=== PATIENT | male | born 1970 | race Caucasian/White ===

== ENCOUNTER 2021-08-12 13:31 | Emergency (ER) | payer OTHER, SELFPAY ==
--- NOTE | ~2021-08-12 | CT_ITS ---
EXAMINATION: CT ABDOMEN AND PELVIS WITHOUT CONTRAST CLINICAL INFORMATION: Left flank pain. COMPARISON: Renal ultrasound of 07/25/2019. Abdominal MRI of 10/08/2017, CT abdomen and pelvis of 08/31/2017. TECHNIQUE: Multidetector volumetric imaging was performed from the superior aspect of the liver through the pubic symphysis. Sagittal and coronal reformatted images were obtained on the technologist's workstation. This CT examination was performed using dose optimization techniques as appropriate, variously including the following: *Automated exposure control. *Adjustment of mA and/or kV according to patient size (this includes techniques or standardized protocols for targeted exams where dose is matched to indication/reason for exam; i.e. extremities or head). *Use of iterative reconstruction technique. DLP: 776 mGy-cm FINDINGS: LUNG BASES: The visualized lung bases are unremarkable. LIVER, GALLBLADDER, AND BILIARY TREE: The unenhanced liver is normal in size, shape, and attenuation. No focal hepatic lesion or biliary ductal dilatation is present. The gallbladder is unremarkable with no evidence of radiopaque gallstones, gallbladder wall thickening, or obvious pericholecystic inflammatory changes. PANCREAS: Unremarkable. SPLEEN: Unremarkable. ADRENAL GLANDS: Unremarkable. KIDNEYS AND URETERS: The kidneys are normal in size, shape, and attenuation. No hydronephrosis, hydroureter, or calculi seen. No perinephric stranding. A 1.4 cm round right mid to lower renal lesion noted posteromedially on the previous MRI and CT scan of 2018 is not clearly appreciated on this noncontrast CT scan. BLADDER: Unremarkable. GASTROINTESTINAL TRACT: The small and large bowel are unremarkable. The appendix is unremarkable. The stomach is decompressed and, therefore, not optimally evaluated. However, no gross abnormality is noted. Small hiatal hernia. ABDOMINAL WALL: There is a fat-containing left inguinal hernia measuring approximately 2.4 cm. LYMPH NODES: No pathologically enlarged lymph nodes are noted. VASCULAR: The aortoiliac vessels are normal in caliber. Mild calcific atherosclerosis of the aortoiliac vessels. PELVIC VISCERA: Unremarkable. OSSEOUS STRUCTURES: No acute or suspicious osseous lesions. Mild multilevel degenerative changes in the spine are redemonstrated. CT/CT abdomen pelvis wo con IMPRESSION: 1. There is no evidence of radiopaque urinary tract calculi or obstructive uropathy. 2. No acute abnormalities identified to explain patient's symptoms. 3. Fat-containing left inguinal hernia measuring 2.3 cm, a stable finding. Fleischner guidelines were followed.
[2021-08-12 14:15] VITALS: BP 149/91; PULSE 64; RESP 18; TEMP 35.9; O2SAT 97; BMI 31.5
[2021-08-12 18:31] VITALS: BP 165/95; PULSE 70; RESP 18; TEMP 36.7; O2SAT 96
--- NOTE | 2021-08-12 18:39 | ED.BACK ---
HPI - Back Pain/Injury General Chief Complaint: Back Pain/Injury <Yumi Hernandez MD - Last Filed: 08/12/21 21:09> Stated Complaint: Lower back pain <Yumi Hernandez MD - Last Filed: 08/12/21 21:09> Time Seen by Provider: 08/12/21 18:36 <Yumi Hernandez MD - Last Filed: 08/12/21 21:09> Source: patient and family (Spouse) <MD Stefan Squires Last Filed: 08/12/21 21:09> Mode of arrival: ambulatory <MD Stefan Squires Last Filed: 08/12/21 21:09> Limitations: no limitations <MD Stefan Squires Last Filed: 08/12/21 21:09> History of Present Illness HPI Narrative: 51-year-old male came in for left lower back pain for 4 days. Patient was working on his car in a hunched position 4 days ago, shortly after patient started to have left-sided low back pain that radiates down to the left front of the abdomen and left testicle, no aggravating factor, no relieving factor, no other associated symptoms, declined any hematuria or dark urine, no fever, no chills. Pain is not related to movement pain is constant and severe 10/10 described as dull aching pain. <Yumi Hernandez MD - Last Filed: 08/12/21 21:09> Related Data Home Medications: Previous Rx's Medication Instructions Recorded cyclobenzaprine 10 mg tablet 10 mg PO TID PRN #10 tab 08/12/21 ibuprofen 600 mg tablet 600 mg PO Q8H PRN #14 tab 08/12/21 oxycodone 5 mg tablet 5 mg PO Q8H PRN #10 tab 08/12/21 <MD Stefan Squires Last Filed: 08/12/21 21:09> Allergies/Adverse Reactions: Allergies Allergy/AdvReac Type Severity Reaction Status Date / Time bee pollen [BEE STINGS] Allergy Severe THROAT Unverified 12/21/19 14:49 SWELLING codeine [CODEINE] Allergy Severe THROAT Unverified 12/21/19 14:49 SWELLING bee stings Allergy Unknown throat Uncoded 07/03/19 00:00 swelling Codeine Phosphate Allergy Unknown Uncoded 07/03/19 00:00 <Yumi Hernandez MD - Last Filed: 08/12/21 21:09> Review of Systems Review of Systems: All other systems are reviewed and are negative Constitutional: Reports as per HPI and Reports no additional constitutional complaints Eyes: Reports as per HPI and Reports no additional eye complaints Reports system reviewed and no additional complaints, except as documented Cardiovascular: Reports as per HPI and Reports no additional cardiovascular complaints Respiratory: Reports as per HPI and Reports no additional respiratory complaints Gastrointestinal: Reports as per HPI and Reports no additional gastrointestinal complaints Genitourinary: Reports no additional female genitourinary complaints Musculoskeletal: Reports no additional musculoskeletal complaints Skin/Breast: Reports system reviewed and no additional complaints, except as docu Psychiatric: Reports no additional psychiatric complaints Endocrine: Reports no additional endocrine complaints Hematologic/Lymphatic: Reports no additional hematologic/lymphatic complaints Allergic/Immunologic: Reports no additional allergic/immunologic complaints Reports system reviewed and no additional complaints, except as documented and Reports Abnormal speech present <Yumi Hernandez MD - Last Filed: 08/12/21 21:09> [facility] Past Medical History Medical History: Medical History Kidney stone <Yumi Hernandez MD - Last Filed: 08/12/21 21:09> Surgical History: Surgical History History of hernia surgery <Yumi Hernandez MD - Last Filed: 08/12/21 21:09> Social History Social History: Social History Advance Directives: No Advance Directives Information Provided: No <Yumi Hernandez MD - Last Filed: 08/12/21 21:09> Physical Exam Vital Signs: Vital Signs: Last Vital Signs Temp 98 F 08/12/21 20:32 Pulse 62 08/12/21 20:32 Resp 20 08/12/21 20:32 BP 170/93 H 08/12/21 20:32 Pulse Ox 98 08/12/21 20:32 BMI result Body Mass Index 31.5 Vital signs have been reviewed as appeared to be correct. Blood pressure normal. Heart rate normal. Respiration rate normal. Temperature normal. Oxygen saturation normal. <Yumi Hernandez MD - Last Filed: 08/12/21 21:09> Vital Signs: Last Vital Signs Temp 98 F 08/12/21 20:32 Pulse 62 08/12/21 20:32 Resp 20 08/12/21 20:32 BP 170/93 H 08/12/21 20:32 Pulse Ox 98 08/12/21 20:32 BMI result Body Mass Index 31.5 <Samia Pineda MD - Last Filed: 08/12/21 22:01> Appearance: Alert. Oriented X3. No acute distress. Head: Normal external exam. Normocephalic. Atraumatic. No Heller signs noted. No raccoon eyes noted Eyes: PERRLA. EOMI. Conjunctiva and sclera normal. Eyelids normal. ENT: TM's Normal. Pharynx normal. Uvula midline. Moist mucous membranes. No trismus noted. No drooling noted. No muffled voice noted. Neck: Normal inspection. Neck supple. FROM. No adenopathy. Thyroid Normal. No meningeal signs. No neck mass noted. CVS: Normal heart rate and rhythm. Heart sound normal. No murmurs noted. Pulses normal throughout. Respiratory: No respiratory distress. Painless inspiration. Breath sounds normal. No wheezes/rales/rhonchi noted. Chest nontender. No accessory muscle usage noted or decreased air movement noted. Abdomen: Soft and nontender. Bowel sounds normal in all 4 quadrants. No distention noted. No organomegaly noted. No visible injury noted. Back: No CVA tenderness. Full range of motion noted. Skin: Skin warm and dry. Normal skin color. Normal skin turgor. No rashes/lesions/lacerations noted. Extremities: No lower extremity edema. Extremities exhibit normal range of motion. Extremities nontender. Neuro: Oriented X 3. Cranial nerve exam: II-XII are grossly intact No motor deficit. No sensory deficit. Reflexes normal. <Yumi Hernandez MD - Last Filed: 08/12/21 21:09> Course Course Course Narrative: Assessment and plan. 51 years old male came in with left low back pain physical exam and history is consistent with muscular pain. Prescribed muscle relaxants and NSAIDs. <Yumi Hernandez MD - Last Filed: 08/12/21 21:09> Assessment and plan. 51 years old male came in with left low back pain physical exam and history is consistent with muscular pain. Prescribed muscle relaxants and NSAIDs. I discussed the CT scan with the patient, no kidney stones. Patient likely having musculoskeletal pain. <Samia Pineda MD - Last Filed: 08/12/21 22:01> MDM - Back Pain/Injury Lab Data Attestation: I reviewed the patient's lab results. <Yumi Hernandez MD - Last Filed: 08/12/21 21:09> Result diagrams: : 08/12/21 19:10 08/12/21 19:10 <Yumi Hernandez MD - Last Filed: 08/12/21 21:09> Labs: Lab Results 08/12/21 08/12/21 08/12/21 Range/Units 19:10 19:10 19:26 WBC 7.1 (4.8-10.8) X10*3/uL RBC 4.64 (4.60-5.80) X10*6/uL Hgb 15.0 (14.0-18.0) g/dl Hct 42.1 (42.0-52.0) % MCV 90.7 (80.0-98.0) fL MCH 32.3 (27.0-33.0) pg MCHC 35.6 (31.0-36.0) g/dl RDW 12.7 (11.0-16.0) % Plt Count 227 (160-400) X10*3/uL MPV 9.7 (9.4-12.4) fL Immature Gran % (Auto) 0.3 (0.0-0.4) % Neut % (Auto) 66.9 (45-73) % Lymph % (Auto) 22.8 (20-40) % [place] % (Auto) 8.7 (2-11) % Eos % (Auto) 0.7 (0-4) % Baso % (Auto) 0.6 (0-2) % Lymph # (Auto) 1.6 (1.2-4.9) X10*3/uL [place] # (Auto) 0.6 (0.1-1.2) X10*3/uL Eos # (Auto) 0.1 (0.0-0.4) X10*3/uL Baso # (Auto) 0.0 (0.0-0.2) X10*3/uL Abs Immat Gran (auto) 0.02 (0.00-0.03) X10*3/uL Absolute Neuts (auto) 4.8 (2.0-8.3) x10*3/uL Absolute Nucleated RBC 0.000 (0.0-0.012) X10*3/uL Nucleated RBC % (auto) 0.0 (0.0-0.2) /100WBC Sodium 138 (135-145) mmol/L Potassium 3.7 (3.3-5.1) mmol/L Chloride 105 (96-108) mmol/L Carbon Dioxide 25 (22-29) mmol/L Anion Gap 12 (12-20) BUN 11 (9-16) mg/dL Creatinine 0.77 (0.5-1.4) mg/dL Estim Creat Clear Calc 132.8 Estimated GFR > 60 Random Glucose 92 (60-115) mg/dL Calcium 9.3 (8.4-10.2) mg/dL Total Bilirubin 0.5 (0.0-1.0) mg/dL Direct Bilirubin 0.2 (0.0-0.5) mg/dL AST 19 (5-37) U/L ALT 27 (0-40) U/L Alkaline Phosphatase 55 (39-117) U/L Total Protein 7.0 (6.5-8.0) g/dL Albumin 4.4 (3.5-5.0) g/dL Lipase 22 (8-78) U/L Urine Color DK YELLOW Urine Appearance CLEAR Urine pH 6.0 (5.0-8.0) Ur Specific [place] >= 1.030 H (1.005-1.025) Urine Protein NEG (NEG-TRACE) MG/DL Urine Glucose (UA) NEG (NEG) MG/DL Urine Ketones NEG (NEG) MG/DL Urine Blood NEG (NEG) Urine Nitrite NEG (NEG) Ur Leukocyte Esterase NEG (NEG) <Yumi Hernandez MD - Last Filed: 08/12/21 21:09> Lab Results 08/12/21 08/12/21 08/12/21 Range/Units 19:10 19:10 19:26 WBC 7.1 (4.8-10.8) X10*3/uL RBC 4.64 (4.60-5.80) X10*6/uL Hgb 15.0 (14.0-18.0) g/dl Hct 42.1 (42.0-52.0) % MCV 90.7 (80.0-98.0) fL MCH 32.3 (27.0-33.0) pg MCHC 35.6 (31.0-36.0) g/dl RDW 12.7 (11.0-16.0) % Plt Count 227 (160-400) X10*3/uL MPV 9.7 (9.4-12.4) fL Immature Gran % (Auto) 0.3 (0.0-0.4) % Neut % (Auto) 66.9 (45-73) % Lymph % (Auto) 22.8 (20-40) % [place] % (Auto) 8.7 (2-11) % Eos % (Auto) 0.7 (0-4) % Baso % (Auto) 0.6 (0-2) % Lymph # (Auto) 1.6 (1.2-4.9) X10*3/uL [place] # (Auto) 0.6 (0.1-1.2) X10*3/uL Eos # (Auto) 0.1 (0.0-0.4) X10*3/uL Baso # (Auto) 0.0 (0.0-0.2) X10*3/uL Abs Immat Gran (auto) 0.02 (0.00-0.03) X10*3/uL Absolute Neuts (auto) 4.8 (2.0-8.3) x10*3/uL Absolute Nucleated RBC 0.000 (0.0-0.012) X10*3/uL Nucleated RBC % (auto) 0.0 (0.0-0.2) /100WBC Sodium 138 (135-145) mmol/L Potassium 3.7 (3.3-5.1) mmol/L Chloride 105 (96-108) mmol/L Carbon Dioxide 25 (22-29) mmol/L Anion Gap 12 (12-20) BUN 11 (9-16) mg/dL Creatinine 0.77 (0.5-1.4) mg/dL Estim Creat Clear Calc 132.8 Estimated GFR > 60 Random Glucose 92 (60-115) mg/dL Calcium 9.3 (8.4-10.2) mg/dL Total Bilirubin 0.5 (0.0-1.0) mg/dL Direct Bilirubin 0.2 (0.0-0.5) mg/dL AST 19 (5-37) U/L ALT 27 (0-40) U/L Alkaline Phosphatase 55 (39-117) U/L Total Protein 7.0 (6.5-8.0) g/dL Albumin 4.4 (3.5-5.0) g/dL Lipase 22 (8-78) U/L Urine Color DK YELLOW Urine Appearance CLEAR Urine pH 6.0 (5.0-8.0) Ur Specific [place] >= 1.030 H (1.005-1.025) Urine Protein NEG (NEG-TRACE) MG/DL Urine Glucose (UA) NEG (NEG) MG/DL Urine Ketones NEG (NEG) MG/DL Urine Blood NEG (NEG) Urine Nitrite NEG (NEG) Ur Leukocyte Esterase NEG (NEG) <Samia Pineda MD - Last Filed: 08/12/21 22:01> Discharge Plan Discharge Clinical Impression: Strain of lumbar region <Yumi Hernandez MD - Last Filed: 08/12/21 21:09> Patient Disposition: Home, Self-Care <Yumi Hernandez MD - Last Filed: 08/12/21 21:09> Instructions: Low Back Strain (ED) <Yumi Hernandez MD - Last Filed: 08/12/21 21:09> Additional Instructions: Please follow-up with your primary care physician tomorrow. If you have any worsening or new symptoms, please return to the emergency room or call 911 <Yumi Hernandez MD - Last Filed: 08/12/21 21:09> Prescriptions: New cyclobenzaprine 10 mg tablet 10 mg PO TID PRN (Reason: muscle spasm) Qty: 10 0RF ibuprofen 600 mg tablet 600 mg PO Q8H PRN (Reason: pain) Qty: 14 0RF oxycodone 5 mg tablet 5 mg PO Q8H PRN (Reason: pain) Qty: 10 0RF <Yumi Hernandez MD - Last Filed: 08/12/21 21:09> Referrals: Thom Segovia MD, DO [Primary Care Provider] - <Yumi Hernandez MD - Last Filed: 08/12/21 21:09>
[2021-08-12 19:15] LABS: MANUAL DIFF FLAG NO
[2021-08-12 19:17] LABS: Basophils Percent Auto 0.6 % (0-2); Eosinophils Absolute Auto 0.1 X10*3/uL (0.0-0.4); Eosinophils Percent Auto 0.7 % (0-4); Hematocrit 42.1 % (42.0-52.0); Imm Gran Abs Auto 0.02 X10*3/uL (0.00-0.03); Imm Gran Pct Auto 0.3 % (0.0-0.4); Lymphocytes Absolute Auto 1.6 X10*3/uL (1.2-4.9); Lymphocytes Percent Auto 22.8 % (20-40); Mean Corpuscular HGB Conc 35.6 g/dl (31.0-36.0); Mean Corpuscular Hemoglobin 32.3 pg (27.0-33.0); Mean Corpuscular Volume 90.7 fL (80.0-98.0); Mean Platelet Volume 9.7 fL (9.4-12.4); Monocytes Absolute Auto 0.6 X10*3/uL (0.1-1.2); Monocytes Percent Auto 8.7 % (2-11); Neutrophils Absolute Auto 4.8 x10*3/uL (2.0-8.3); Neutrophils Percent Auto 66.9 % (45-73); Platelet Count 227 X10*3/uL (160-400); Red Blood Count 4.64 X10*6/uL (4.60-5.80); Red Cell Distribution Width 12.7 % (11.0-16.0); White Blood Count 7.1 X10*3/uL (4.8-10.8)
[2021-08-12 19:34] LABS: Alanine Aminotransferase 27 U/L (0-40); Albumin Level 4.4 g/dL (3.5-5.0); Alkaline Phosphatase 55 U/L (39-117); Anion Gap 12 (12-20); Aspartate Amino Transferase 19 U/L (5-37); Bilirubin Direct 0.2 mg/dL (0.0-0.5); Bilirubin Total 0.5 mg/dL (0.0-1.0); Blood Urea Nitrogen 11 mg/dL (9-16); Calcium 9.3 mg/dL (8.4-10.2); Carbon Dioxide 25 mmol/L (22-29); Chloride 105 mmol/L (96-108); Creatinine Clr Calc Pharmacy 132.8; Estimated Glomerular Filt Rate > 60; Glucose Random 92 mg/dL (60-115); Lipase 22 U/L (8-78); Potassium 3.7 mmol/L (3.3-5.1); Sodium 138 mmol/L (135-145)
[2021-08-12 19:34] LABS: Appearance Urine CLEAR; Color Urine DK YELLOW; Glucose Urine UA NEG (NEG); Leukocyte Esterase Urine NEG (NEG); Nitrite Urine NEG (NEG); Specific Gravity - Urine >= 1.030 (1.005-1.025); Urine Blood NEG (NEG); Urine Ketones NEG (NEG); Urine Protein NEG (NEG-TRACE)
--- NOTE | 2021-08-12 20:21 | PC.NURSE ---
pt wanting to leave states no one seen him in 7 hours. labs drawns pending, ct done and pending provider made aware.
[2021-08-12 20:32] VITALS: BP 170/93; PULSE 62; RESP 20; TEMP 36.6; O2SAT 98
[2021-08-12] MEDS: HYDROmorphone HCl 2 MG TABLET 1 MG PO (20:54)
[2021-08-12] MEDS: Ibuprofen 600 MG TABLET PO (20:54)
== END 2021-08-12 22:10 | disposition home or self-care (01) ==
PROVIDERS: Emergency Provider Emergency Medicine; PCP Internal Medicine
DX: M54.50 Low back pain, unspecified (principal); R10.2 Pelvic and perineal pain; Z79.899 Other long term (current) drug therapy
CPT/HCPCS: 36415; 74176; 80048; 80076; 81003; 83690; 85025; 96374; 96375; 99284

== ENCOUNTER → 2022-01-01 11:22 | Outpatient (BNVA) | payer OTHER, SELFPAY | PROVIDERS: PCP Internal Medicine; Visit Provider Surgery | DX: K40.90 Unilateral inguinal hernia, without obstruction or gangrene, not specified as recurrent (principal) | CPT/HCPCS: 99202 ==

== ENCOUNTER 2022-01-28 06:04 | Day surgery (SDC) | payer OTHER, SELFPAY ==
[2022-01-22 11:04] VITALS: BMI 31.5
--- NOTE | 2022-01-27 08:42 | HO.ANESPROP2 ---
Documented by User: Shasha Coley NP 01/27/22 08:42 HPI - Anesthesia Eval Consult details Narrative: 51yo M for Left Inguinal Hernia Repair with mesh PMFSH Active Problems Active Problems: All Active Problems (Updated 01/01/22 @ 13:08 by Jack Smith MD) Left inguinal hernia (Acute) Past Medical History Medical History (Updated 01/28/22 @ 07:27 by Cassy Mauricio MD) Borderline hyperlipidemia Ex-smoker Increased BMI Kidney stone Low back pain Family History Family History Father Colon cancer Mother Colon cancer Surgical History Surgical History (Updated 01/22/22 @ 11:00 by Parisa Kearney RN) H/O colonoscopy History of right inguinal hernia repair Hx of cystoscopy Hx of cystoscopy Hx of lithotripsy Social History Social History (Updated 01/28/22 @ 08:41 by Cassy Mauricio MD) Alcohol intake: never Patient Tobacco Use Status: Former Tobacco user Quit Date: 2013 Tobacco use type: Cigarette Years Smoked: 20 Smoked in Last 30 Days: No Use of substances other than those prescribed or required for medical reasons: Yes Substance Use Type: Marijuana Substance Use Frequency: Daily Are you DNR?: No Advance Directives: No Advance Directives Information Provided: Yes Meds Allergies Allergy/AdvReac Type Severity Reaction Status Date / Time bee pollen [BEE STINGS] Allergy Severe THROAT Verified 01/28/22 06:13 SWELLING acetaminophen Allergy Unknown Vomiting Verified 01/28/22 07:53 [From Tylenol-Codeine] codeine Allergy Unknown Vomiting Verified 01/28/22 07:53 [From Tylenol-Codeine] Exam Exam Date and Time: January 27, 2022 0842 Height,Weight and Vital Signs: Height 5 ft 10 in Weight 99.79 kg Assessment and Plan Assessment Anesthesia Assessment: Chart Reviewed Documented by User: Cassy Mauricio MD 01/28/22 08:41 PMFSH Active Problems Active Problems: All Active Problems (Updated 01/01/22 @ 13:08 by Jack Smith MD) Left inguinal hernia (Acute) Increased BMI Marijuana use. Last 2 days ago Past Medical History Medical History (Updated 01/28/22 @ 07:27 by Cassy Mauricio MD) Borderline hyperlipidemia Ex-smoker Increased BMI Kidney stone Low back pain Family History Family History Father Colon cancer Mother Colon cancer Family history of problems with anesthesia: No Surgical History Surgical History (Updated 01/22/22 @ 11:00 by Parisa Kearney RN) H/O colonoscopy History of right inguinal hernia repair Hx of cystoscopy Hx of cystoscopy Hx of lithotripsy History of Problems with Anesthesia: Yes (Vomiting at induction of MAC anesthesia with ESWL ?2020. Unsure if related to anesthesia) Social History Social History (Updated 01/28/22 @ 08:41 by Cassy Mauricio MD) Alcohol intake: never Patient Tobacco Use Status: Former Tobacco user Quit Date: 2013 Tobacco use type: Cigarette Years Smoked: 20 Smoked in Last 30 Days: No Use of substances other than those prescribed or required for medical reasons: Yes Substance Use Type: Marijuana Substance Use Frequency: Daily Are you DNR?: No Advance Directives: No Advance Directives Information Provided: Yes Meds Allergies Allergy/AdvReac Type Severity Reaction Status Date / Time bee pollen [BEE STINGS] Allergy Severe THROAT Verified 01/28/22 06:13 SWELLING acetaminophen Allergy Unknown Vomiting Verified 01/28/22 07:53 [From Tylenol-Codeine] codeine Allergy Unknown Vomiting Verified 01/28/22 07:53 [From Tylenol-Codeine] Exam Height,Weight and Vital Signs: Height 5 ft 10 in Weight 99.79 kg Vital Signs Temp Pulse Resp BP Pulse Ox O2 Del Method 01/28/22 06:19 98.2 F 78 16 151/92 H 96 Room Air Airway Mallampati Class: II TM Dist: >3cm Neck ROM: Full Denture: Upper Loose/Missing/Broken Teeth: Yes (Only 1 tooth bottom. Poor condition.) and No Heart: RRR Lungs: Bilateral wheezes Other: History of wheezes pre-op in the past. Denies cold, fever,smoking,COPD. No fever. Post albuterol treatment still wheezy but patient states breathing feels better. Sats 96% (RA). Will proceed. Discussed with patient about possible pulmonary consult as this has been ongoing for at least 4 years- almost everytime patient has come in for surgery. ?element of COPD secondary to smoking Assessment and Plan Assessment Anesthesia Assessment: Anesthesia Plan Discussed Final Anesthetic Review Family History of Problems with Anesthesia: No History of Problems with Anesthesia: Yes (Vomiting at induction of MAC anesthesia with ESWL ?2019. Unsure if related to anesthesia) NPO: Yes ASA Class: III Final Preanesthetic Review: No Changes in Pt Med Stat, Meds/Allgs Chart Reviewed, Consent Obtained/Reviewed and Anes Risks/Benef Reviewed Patient Risk: Intermediate Procedure Risk: Low Assessment/Block/Sedation in SS: Assess/Block/Sedation-SS Anesthetic Plan Anesthetic Plan: GA Disposition: Standard PACU
[2022-01-28] VITALS (8 sets, daily range): BP systolic 119–159; BP diastolic 69–92; PULSE 64–84; RESP 16–18; TEMP 36.2–36.8; O2SAT 95–99; BMI 31.5
[2022-01-28] MEDS: Lactated Ringers 1,000 ML 100 ML IVCONT (07:23)
--- NOTE | 2022-01-28 07:23 | PC.NURSE ---
Patient arrived to preop for surgical prep complaining of increased flem this past week . Congested cough present, wheezing present throughout all lung perez. SaO2 96% on monitor. No fever present. Patient denies asthma and no diagnosis of asthma in medical record. Patient does not take any home medications or inhalers. Dr. Haque and Dr. Mauricio made aware. Dr. Mauricio at bedside to assess. Breathing treatment in preop ordered.
--- NOTE | 2022-01-28 07:27 | MHC.SHP ---
Pre-Procedural Eval Section A Date of Service: 01/28/22 The patient is an INPATIENT: No Changes since office visit: Yes Patient answered all questions; No Cold of Flu in the past 2 weeks, No New Medical Problems and No Changes in Medication The History & Physical has been completed within 30 days and I have reviewed it.: Yes Section B Chief Complaint: Unilateral inguinal hernia, without obstruction or Allergies: Allergies Allergy/AdvReac Type Severity Reaction Status Date / Time bee pollen [BEE STINGS] Allergy Severe THROAT Verified 01/28/22 06:13 SWELLING acetaminophen Allergy Unknown Unknown Verified 01/28/22 06:13 [From Tylenol-Codeine] codeine Allergy Unknown Unknown Verified 01/28/22 06:13 [From Tylenol-Codeine] Plan Diagnosis/Plan: Unchanged I have reviewed the history and physical and performed a pertinent physical examination on my patient. No changes have occurred unless specified.
[2022-01-28] MEDS: Albuterol Sulfate (0.083%) 2.5 MG/3 ML VIAL.NEB INHALE (07:35)
--- NOTE | 2022-01-28 08:40 | P.OP_ITS ---
Operative Note Operative Note Date of Service: 01/28/22 Narrative: Preoperative diagnosis: Left inguinal hernia Postoperative diagnosis: same Procedure: repair of left inguinal hernia with mesh Surgeon: Jack Smith MD Milk Tanker Driver: Tahmina Platt PA-C, Florence MATHEW Anesthesia: general LMA Indications for procedure: 51-year-old male patient with a previous history of a right inguinal hernia now presenting with a lump in the left groin which increases in size with lifting and straining and reduces with light pressure. On examination patient has a left inguinal hernia which easily reduces with light pressure. Operative findings: Indirect left inguinal hernia with preperitoneal fat within the cord Specimen: lipoma of the cord left groin Estimated blood loss: 2 mL Complications: none Procedure details: patient was brought to the OR placed in a supine position. After administering general anesthesia the patient's left groin was prepped with ChloraPrep and draped in a sterile fashion. A surgical time-out was called the consent confirmed. Patient Venodyne boots were in place. Local anesthesia consisting of 0.5% Sensorcaine was infiltrated over the left inguinal ligament. Incision was then made with a scalpel carried out through subcutaneous tissue, past Layne's fascia, and up the aponeurosis. Additional local was infiltrated below the external oblique aponeurosis. This was then incised with a scalpel wide with the Metzenbaum scissors. Cord was a slight weakness was noted in the floor of the inguinal canal and the spermatic cord was noted to be thickened suggestive of a indirect hernia. Fibers of the cremasteric muscle were then s eparated and a large lipoma of the cord identified. This was dissected down to the internal ring, preserving the cord vessels and vas deferens. This was then ligated and divided. The stump was ligated using a 3-0 Polysorb tie. Attention was then directed to the internal oblique aponeurosis which was incised between clamps and a preperitoneal space entered. A preperitoneal space was widened using an open Ray-Christiano sponge. A large PHS mesh was then obtained. The circular underlay was deployed within the preperitoneal space and the overlay secured to the pubic tubercle, conjoined tendon, and shelving edge of the inguinal ligament using a 0 Polysorb suture. A slit was made in the mesh in the mesh wrapped around the spermatic cord at the internal ring. This was then secured to the shelving edge using a 0 Polysorb suture. Hemostasis was then assured and the wounds irrigated with saline solution. External oblique aponeurosis then closed using a running 2 0 Polysorb suture. 7 mL of Zenrelef was then infiltrated over the mesh. Layne's fascia and dermis were then reapproximated using interrupted 3-0 Polysorb sutures. Skin was closed using a running subcuticular 4-0 Polysorb suture. Steri-Strips, 2 x 2 gauze and Tegaderm were then applied. The patient tolerated the procedure well. Sponge, instrument, needle counts reported as correct. Patient was transferred to PACU in stable condition.
== END 2022-01-28 10:18 | disposition home or self-care (01) ==
PROVIDERS: PCP Internal Medicine; Visit Provider Surgery
PROC: (CPT 49505; principal; 2022-01-28 07:30)
DX: K40.90 Unilateral inguinal hernia, without obstruction or gangrene, not specified as recurrent (principal); D17.6 Benign lipomatous neoplasm of spermatic cord; Z87.442 Personal history of urinary calculi; Z88.8 Allergy status to other drugs, medicaments and biological substances; Z87.891 Personal history of nicotine dependence
CPT/HCPCS: 49505; 88304; 94640; C1781; C9088; J0690; J1100; J1885; J2250; J2405; J2765; J2795; J3010

== ENCOUNTER 2022-02-28 13:19 | Outpatient (REF) | payer OTHER, SELFPAY ==
[2022-02-28 15:26] LABS: Appearance Urine Clear; Color Urine Yellow; Glucose Urine UA Negative (Negative); Leukocyte Esterase Urine Negative (Negative); Nitrite Urine Negative (Negative); Urine Blood Negative (Negative); Urine Ketones Negative (Negative); Urine Protein Negative (Neg-Trace)
[2022-02-28 15:31] LABS: Bacteria Urine None Seen (None Seen); Hyaline Casts Urine 0-2 /LPF (0-2); RBC Urine 0-2 /HPF (0-2); Squamous Epithelial Cell Urine 0-2 /HPF (0-2); WBC Urine 0-5 /HPF (0-5)
[2022-02-28 15:57] LABS: PSA,Total (Free>4and<10) 0.35 ng/mL (0.00-4.00)
== END 2022-02-28 13:20 | disposition home or self-care (01) ==
LOC: HO.HMGCLDS 13:19
PROVIDERS: PCP Internal Medicine; Visit Provider Internal Medicine
DX: K40.90 Unilateral inguinal hernia, without obstruction or gangrene, not specified as recurrent (principal); Z12.5 Encounter for screening for malignant neoplasm of prostate
CPT/HCPCS: 36415; 81001; 84153

== ENCOUNTER 2022-03-23 16:07 | Outpatient (REF) | payer OTHER, SELFPAY ==
--- NOTE | 2022-03-23 | PFT_ITS ---
FLOWS: FEV1 95% of predicted at 3.55 L. FVC 91% of predicted at 4.39 L. FEV1 to FVC ratio of 0.81. No bronchodilator response. LUNG VOLUMES: Total lung capacity 89% of predicted at 6.05 L. Residual volume 84% of predicted at 1.71 L. Slow vital capacity 91% of predicted at 4.34 L. Expiratory reserve volume 68% of predicted at 0.97 L. Diffusion capacity is normal. IMPRESSION: No obstructive or restrictive ventilatory defect. No bronchodilator response. Essentially normal pulmonary function test. Speedy Andujar MD AP/MODL / [id number]
== END 2022-03-23 16:08 | disposition home or self-care (01) ==
LOC: HO.RESP 16:07
PROVIDERS: PCP Internal Medicine; Visit Provider Internal Medicine
DX: R06.2 Wheezing (principal)
CPT/HCPCS: 94060; 94727; 94729

== ENCOUNTER 2022-06-09 06:32 | Day surgery (SDC) | payer OTHER, SELFPAY ==
--- NOTE | 2022-06-08 12:10 | HO.ANESPROP2 ---
Documented by User: Shasha Coley NP 06/08/22 12:10 HPI - Anesthesia Eval Consult details Narrative: 52yo M for Colonoscopy PMFSH Active Problems Active Problems: All Active Problems (Updated 01/28/22 @ 07:27 by Cassy Mauricio MD) Increased BMI (Acute) Left inguinal hernia (Acute) Past Medical History Medical History Borderline hyperlipidemia Ex-smoker Increased BMI Kidney stone Low back pain Family History Family History Father Colon cancer Mother Colon cancer Family history of problems with anesthesia: No Surgical History Surgical History H/O colonoscopy History of left inguinal hernia repair (01/28/22) History of right inguinal hernia repair Hx of cystoscopy Hx of cystoscopy Hx of lithotripsy History of Problems with Anesthesia: Yes (Vomiting at induction of MAC anesthesia with ESWL ?2019. Unsure if related to anesthesia) Social History Social History Alcohol intake: never Patient Tobacco Use Status: Former Tobacco user Quit Date: 2013 Tobacco use type: Cigarette Years Smoked: 20 Substance Use Type: Marijuana Substance Use Frequency: Occasionally Are you DNR?: No Advance Directives: No Advance Directives Information Provided: Yes Nutrition Risks: No Nutritional Risk Meds Allergies Allergy/AdvReac Type Severity Reaction Status Date / Time bee pollen [BEE STINGS] Allergy Severe THROAT Verified 06/09/22 06:42 SWELLING acetaminophen Allergy Unknown Vomiting Verified 06/09/22 06:42 [From Tylenol-Codeine] codeine Allergy Unknown Vomiting Verified 06/09/22 06:42 [From Tylenol-Codeine] Home Medications Medication Instructions Recorded Confirmed Last Taken Type No Known Home Meds 06/08/22 06/08/22 Unknown History Exam Exam Date and Time: June 08, 2022 1210 Assessment and Plan Assessment Anesthesia Assessment: Chart Reviewed Final Anesthetic Review Family History of Problems with Anesthesia: No History of Problems with Anesthesia: Yes (Vomiting at induction of MAC anesthesia with ESWL ?2019. Unsure if related to anesthesia) Documented by User: Tez Wilson MD 06/09/22 07:42 PMFSH Past Medical History Medical History Borderline hyperlipidemia Ex-smoker Increased BMI Kidney stone Low back pain Family History Family History Father Colon cancer Mother Colon cancer Family history of problems with anesthesia: No Surgical History Surgical History H/O colonoscopy History of left inguinal hernia repair (01/28/22) History of right inguinal hernia repair Hx of cystoscopy Hx of cystoscopy Hx of lithotripsy History of Problems with Anesthesia: Yes (Vomited on induction of anesth for ESWL) Social History Social History Alcohol intake: never Patient Tobacco Use Status: Former Tobacco user Quit Date: 2013 Tobacco use type: Cigarette Years Smoked: 20 Substance Use Type: Marijuana Substance Use Frequency: Occasionally Are you DNR?: No Advance Directives: No Advance Directives Information Provided: Yes Nutrition Risks: No Nutritional Risk Meds Allergies Allergy/AdvReac Type Severity Reaction Status Date / Time bee pollen [BEE STINGS] Allergy Severe THROAT Verified 06/09/22 06:42 SWELLING acetaminophen Allergy Unknown Vomiting Verified 06/09/22 06:42 [From Tylenol-Codeine] codeine Allergy Unknown Vomiting Verified 06/09/22 06:42 [From Tylenol-Codeine] Home Medications Medication Instructions Recorded Confirmed Last Taken Type No Known Home Meds 06/08/22 06/08/22 Unknown History Exam Airway Mallampati Class: I TM Dist: >3cm Neck ROM: Full Loose/Missing/Broken Teeth: Yes and Lower Heart: ok Lungs: ok Assessment and Plan Assessment Anesthesia Assessment: Anesthesia Plan Discussed and Chart Reviewed Final Anesthetic Review Family History of Problems with Anesthesia: No History of Problems with Anesthesia: Yes (Vomited on induction of anesth for ESWL) NPO: Yes ASA Class: II Final Preanesthetic Review: No Changes in Pt Med Stat, Meds/Allgs Chart Reviewed, Consent Obtained/Reviewed and Anes Risks/Benef Reviewed Patient Risk: Low Procedure Risk: Low Anesthetic Plan Anesthetic Plan: MAC: and Agree w/ Assess. and Plan Disposition: Standard PACU
[2022-06-09 06:14] VITALS: BMI 34.0
[2022-06-09] MEDS: Lactated Ringers 1,000 ML 100 ML IVCONT (06:45)
[2022-06-09 06:56] VITALS: BP 158/100; PULSE 92; RESP 18; TEMP 36.8; O2SAT 95
[2022-06-09 07:19] VITALS: BP 152/96
--- NOTE | 2022-06-09 07:32 | MHC.SHP ---
Pre-Procedural Eval Section A Date of Service: 06/09/22 Section B Chief Complaint: screening,fam hx neoplasm Details of Present Illness: screening Relevant Family History (Specify if Yes): Yes Relevant Social History: None Present Medications: see Short Stay Collaborative assessment Medical History: No relevant PMH History of Previous Operations: No relevant previous surgery Allergies: Allergies Allergy/AdvReac Type Severity Reaction Status Date / Time bee pollen [BEE STINGS] Allergy Severe THROAT Verified 06/09/22 06:42 SWELLING acetaminophen Allergy Unknown Vomiting Verified 06/09/22 06:42 [From Tylenol-Codeine] codeine Allergy Unknown Vomiting Verified 06/09/22 06:42 [From Tylenol-Codeine] Review of Systems Sugical H&P ROS: Negative: Constitution, Cardiovascular, Respiratory, Neurological, Psychiatric, Hem-Onc, Allergic/Immunologic, Gastrointestinal, Genitourinary, Musculoskeletal, Integumentary, Endocrine and Eyes/Ears/Nose/Throat Exam Surgical H&P Exam: Normal: HEENT, Normal: Heart, Normal: Lungs, Normal: Extremities, Normal: Abdomen, Normal: Skin and Normal: Neurological Plan Diagnosis/Plan: Unchanged I have reviewed the history and physical and performed a pertinent physical examination on my patient. No changes have occurred unless specified. Time Spent With Patient Time: Total time managing care of this patient today ____ minutes.
--- NOTE | 2022-06-09 08:05 | P.BOP_ITS ---
Brief Operative Note Date of Service: 06/09/22 Pre-op diagnosis: screening Post-op diagnosis: same Procedure: colonscopy Surgeon: Victor Hugo Gamboa Anesthesia: MAC Was an Executive Compensation Analyst used for this Procedure?: No Estimated blood loss (mL): 2 Pathology: other Condition: stable Disposition: PACU
[2022-06-09 08:10] VITALS: BP 102/70; PULSE 79; RESP 18; TEMP 36.1; O2SAT 93
[2022-06-09 08:25] VITALS: BP 122/84; PULSE 72; RESP 16; TEMP 36.1; O2SAT 97
--- NOTE | 2022-06-09 08:43 | OP_ITS ---
SURGEON: Victor Hugo Gamboa MD INDICATIONS: Colon cancer screening, family history of colon cancer. PREOPERATIVE DIAGNOSIS: POSTOPERATIVE DIAGNOSIS: PROCEDURE PERFORMED: ESTIMATED BLOOD LOSS: COMPLICATIONS: ANESTHESIA: ASSISTANTS: SPECIMENS: MEDICATIONS: Monitored anesthesia care. DESCRIPTION OF PROCEDURE: A history and physical performed. The risks and benefits of the procedure were explained to the patient, and the informed consent was obtained. The procedure was performed on 06/09/2022. Risks and benefits of the procedure were explained to the patient. The patient was placed in the left lateral decubitus position. A digital rectal exam was performed and was found to be normal. The Olympus pediatric video colonoscope was introduced into the rectum and advanced to the cecum without difficulty. The cecum was identified by transillumination, palpation, and identification of ileocecal valve. Examination was performed. The scope was removed. He tolerated the procedure well and was returned to the recovery area in stable condition. FINDINGS: The terminal ileum was examined and appeared normal. The visualized colonic mucosa was normal. The quality of the prep was good. A single polyp was located in the cecum measuring less than 5 mm. This was removed with a biopsy forceps. No other polyps were identified. Retroflexed examination showed moderate-sized internal hemorrhoids. IMPRESSION: Colon polyp. RECOMMENDATION: 1. Follow up the biopsy results. 2. Repeat colonoscopy in 5 years because of family history. MD VICTOR HUGO Gonzalez/VINNIE / [id number]
== END 2022-06-09 09:00 | disposition home or self-care (01) ==
PROVIDERS: PCP Internal Medicine; Visit Provider Internal Medicine Gastroenterology
PROC: 0DJD8ZZ Inspection of Lower Intestinal Tract, Via Natural or Artificial Opening Endoscopic (ICD-10-PCS; CPT 45378; principal; 2022-06-09 07:30)
DX: Z12.11 Encounter for screening for malignant neoplasm of colon (principal); D12.0 Benign neoplasm of cecum; Z80.0 Family history of malignant neoplasm of digestive organs; K64.8 Other hemorrhoids
CPT/HCPCS: 45380; 88305

== ENCOUNTER 2022-06-26 13:44 | Outpatient (REF) | payer OTHER, SELFPAY ==
--- NOTE | ~2022-06-26 | XR_ITS ---
EXAMINATION: XR CHEST CLINICAL INFORMATION: Wheezing. COMPARISON: 12/20/2015 chest and rib radiographs. TECHNIQUE: 2 views of the chest were obtained. FINDINGS: No significant abnormality is noted involving the heart, lungs, mediastinum, bony thorax or soft tissues. XR/XR chest 2V IMPRESSION: No acute cardiopulmonary process.
[2022-06-26 18:24] LABS: Cholesterol 240 mg/dL; HDL Cholesterol 39 mg/dL; LDL Cholesterol Calculated 171 mg/dl; Triglycerides 150 mg/dL
== END 2022-06-26 13:45 | disposition home or self-care (01) ==
LOC: HO.HMGCX 13:44
PROVIDERS: PCP Internal Medicine; Visit Provider Internal Medicine
DX: R06.2 Wheezing (principal)
CPT/HCPCS: 36415; 71046; 80061

== ENCOUNTER 2022-09-26 14:02 | Outpatient (REF) | payer OTHER, SELFPAY ==
[2022-09-26 15:19] LABS: MANUAL DIFF FLAG NO
[2022-09-26 15:20] LABS: Basophils Absolute Auto 0.1 X10*3/uL (0.0-0.2); Basophils Percent Auto 0.8 % (0-2); Eosinophils Absolute Auto 0.1 X10*3/uL (0.0-0.4); Eosinophils Percent Auto 1.3 % (0-4); Hematocrit 42.5 % (42.0-52.0); Hemoglobin 15.2 g/dl (14.0-18.0); Imm Gran Abs Auto 0.02 X10*3/uL (0.00-0.03); Imm Gran Pct Auto 0.3 % (0.0-0.4); Lymphocytes Absolute Auto 1.7 X10*3/uL (1.2-4.9); Lymphocytes Percent Auto 27.1 % (20-40); Mean Corpuscular HGB Conc 35.8 g/dl (31.0-36.0); Mean Corpuscular Hemoglobin 32.7 pg (27.0-33.0); Mean Corpuscular Volume 91.4 fL (80.0-98.0); Mean Platelet Volume 9.9 fL (9.4-12.4); Monocytes Absolute Auto 0.5 X10*3/uL (0.1-1.2); Monocytes Percent Auto 7.8 % (2-11); Neutrophils Absolute Auto 3.9 x10*3/uL (2.0-8.3); Neutrophils Percent Auto 62.7 % (45-73); Platelet Count 245 X10*3/uL (160-400); Red Blood Count 4.65 X10*6/uL (4.60-5.80); White Blood Count 6.2 X10*3/uL (4.8-10.8)
[2022-09-26 15:40] LABS: Alanine Aminotransferase 34 U/L (0-40); Albumin Level 4.4 g/dL (3.5-5.0); Alkaline Phosphatase 56 U/L (39-117); Anion Gap 14 (12-20); Aspartate Amino Transferase 24 U/L (5-37); Bilirubin Total 0.6 mg/dL (0.0-1.0); Blood Urea Nitrogen 10 mg/dL (9-16); Calcium 9.3 mg/dL (8.4-10.2); Carbon Dioxide 23 mmol/L (22-29); Chloride 104 mmol/L (96-108); Cholesterol 228 mg/dL; Estimated Glomerular Filt Rate > 60; Glucose Fasting 119 mg/dL (60-99); HDL Cholesterol 42 mg/dL; LDL Cholesterol Calculated 155 mg/dl; Potassium 3.9 mmol/L (3.3-5.1); Sodium 137 mmol/L (135-145); Total Protein 7.3 g/dL (6.5-8.0); Triglycerides 159 mg/dL
[2022-09-26 15:54] LABS: Thyroid Stimulating Hormone 1.85 uIU/mL (0.32-4.0)
== END 2022-09-26 14:03 | disposition home or self-care (01) ==
LOC: HO.HMGCLDS 14:02
PROVIDERS: PCP Internal Medicine; Visit Provider Internal Medicine
DX: I10 Essential (primary) hypertension (principal); E78.00 Pure hypercholesterolemia, unspecified
CPT/HCPCS: 36415; 80053; 80061; 84443; 85025

== ENCOUNTER 2023-10-25 13:50 | Outpatient (REF) | payer OTHER, SELFPAY ==
[2023-10-25 16:21] LABS: Alanine Aminotransferase 40 U/L (0-40); Albumin Level 4.5 g/dL (3.5-5.0); Alkaline Phosphatase 53 U/L (39-117); Anion Gap 13 (12-20); Aspartate Amino Transferase 28 U/L (5-37); Bilirubin Total 0.8 mg/dL (0.0-1.0); Blood Urea Nitrogen 12 mg/dL (9-16); Calcium 9.5 mg/dL (8.4-10.2); Carbon Dioxide 24 mmol/L (22-29); Chloride 106 mmol/L (96-108); Cholesterol 235 mg/dL (<200); Estimated Glomerular Filt Rate > 60; Glucose Fasting 125 mg/dL (60-99); HDL Cholesterol 42 mg/dL (>40); LDL Cholesterol Calculated 165 mg/dL (<100); Potassium 3.9 mmol/L (3.3-5.1); Sodium 139 mmol/L (135-145); Total Protein 7.5 g/dL (6.5-8.0); Triglycerides 143 mg/dL (<150)
== END 2023-10-25 13:51 | disposition home or self-care (01) ==
LOC: HO.HMGCLDS 13:50
PROVIDERS: PCP Internal Medicine; Visit Provider Internal Medicine
DX: I10 Essential (primary) hypertension (principal); E78.00 Pure hypercholesterolemia, unspecified
CPT/HCPCS: 36415; 80053; 80061

== ENCOUNTER 2024-05-15 13:20 | Outpatient (AMB) | payer OTHER, SELFPAY ==
--- NOTE | 2024-05-15 13:22 | MHC.PC.OV ---
Vital Signs 05/15/24 13:28 Height 5 ft 8.5 in Weight 230 lb BMI 34.5 BP 132/62 Blood Pressure Location Rt brachial Pulse 71 Pulse Source Pulse Oximeter Temp 97.7 F Pulse Oximetry (%) 95 Intake Visit Reasons: follow up Allergies bee pollen [BEE STINGS] Allergy (Severe, Verified 05/15/24 14:00) THROAT SWELLING codeine [From Tylenol-Codeine] Allergy (Unknown, Verified 05/15/24 14:00) Vomiting Medication List - Last Reconciled 05/15/24 by Radha Murray PA-C atorvastatin 20 mg PO DAILY coenzyme Q10 100 mg PO DAILY losartan 100 mg PO DAILY PFSH Medical History (Updated 05/15/24 @ 14:15 by Radha Murray PA-C) Obesity (BMI 30.0-34.9) LLQ abdominal pain History of hematuria Mild hypercholesterolemia Primary hypertension Anxiety Perianal wart History of epididymitis History of orchitis History of kidney stones Ex-smoker Increased BMI Low back pain Borderline hyperlipidemia Kidney stone Surgical History History of left inguinal hernia repair (01/28/22) H/O colonoscopy (~06/09/22) Hx of cystoscopy Hx of cystoscopy Hx of lithotripsy History of right inguinal hernia repair Family History Father Colon cancer Mother Colon cancer Social History Alcohol intake: never Patient Tobacco Use Status: Former Tobacco user Tobacco use type: Cigarette Years Smoked: 20 Substance Use Type: Marijuana Physical exam (Primary Care) Vital Signs: Last Vital Signs Temp 97.7 F 05/15/24 13:28 Pulse 71 05/15/24 13:28 BP 132/62 05/15/24 13:28 Pulse Ox 95 05/15/24 13:28 Care Plan Goal for BP management: 130/80 BMI result Body Mass Index 34.5 BMI Assessment/Plan discussion: High BMI High, discussed plan: lifestyle, weight reduction, dietary, physical activity and alcohol moderation Tobacco/Smoking Status: Tobacco use Status Patient Tobacco Use Status Former Tobacco user 05/15/24 13:23 Tobacco use type Cigarette 02/10/25 13:23 Coding Level of Care Code New Pt Level 4 (05836) Complex EM visit Add On G2211 Diagnoses LLQ abdominal pain R10.32 History of kidney stones Z87.442 Left inguinal hernia K40.90 Mild hypercholesterolemia E78.00 Primary hypertension I10 Anxiety F41.9 Obesity (BMI 30.0-34.9) E66.811 Assessment & Plan Assessment & Plan (1) LLQ abdominal pain: Code(s): R10.32 - Left lower quadrant pain Category: Medical Plan: Left-sided/left lower quadrant abdominal pain intermittent over the past 2-3 months. Abdomen is soft with mild discomfort to the left lower quadrant. No rebound tenderness is noted. No CVA tenderness is noted. No distention is noted. Concerned for possible mesh from hernia repair pain versus kidney stones versus diverticulosis. H and P not consistent with kidney failure, sepsis, appendicitis, pancreatitis, acute cholecystitis. Will order outpatient labs and a CT scan abdomen pelvis without IV contrast and patient to return in 1 month to review labs and imaging. Patient declined anything for pain at this time. Will continue to monitor. (2) History of kidney stones: Code(s): Z87.442 - Personal history of urinary calculi Category: Medical Plan: History of kidney stones reports he has not had any kidney stones in quite some time. Condition is chronic and stable continue to monitor. (3) Left inguinal hernia: Code(s): K40.90 - Unilateral inguinal hernia, without obstruction or gangrene, not specified as recurrent Category: Medical Plan: History of left inguinal hernia repair having discomfort to the left lower quadrant over the past few months intermittently concerned for mesh discomfort from hernia repair. Will order labs and imaging. Patient to return in 1 month. If labs and imaging are within normal limits patient will be referred to General surgery Dr. Smith. (4) Mild hypercholesterolemia: Code(s): E78.00 - Pure hypercholesterolemia, unspecified Category: Medical Plan: Patient to continue taking atorvastatin 20 mg. Will recheck fasting blood work. Patient to return in 1 month. Condition is chronic and stable continue to monitor (5) Primary hypertension: Code(s): I10 - Essential (primary) hypertension Category: Medical Plan: Patient could to continue losartan 100 mg daily. Blood pressure 132/62 at goal. Condition is chronic and stable continue to monitor. (6) Anxiety: Code(s): F41.9 - Anxiety disorder, unspecified Category: Medical Plan: Condition is chronic and stable without any medication at this time. Will continue to monitor. (7) Obesity (BMI 30.0-34.9): Code(s): E66.811 - Obesity, class 1 Category: Medical Plan: Patient to improve his diet and increase his exercise regimen. Condition is chronic and stable continue to monitor. Plan Plan - Order a CT scan to assess the cause of the Left sided abdominal pain and evaluate for kidney stones or other abdominal concerns. - Perform routine blood work including CBC, CMP, lipid panel, liver enzymes, and TSH to monitor overall health and specific conditions. - Refill medications for blood pressure and cholesterol as requested. - Schedule a follow-up appointment in one month to discuss CT scan results and blood work. - Continue current managements for essential hypertension and hyperlipidemia, ensuring patient compliance. - Educate patient on signs to monitor for potential diverticulitis or recurrence of kidney stones. - Consider consulting with Dr. Smith, especially if CT scan reveals hernia-related complications or abnormalities with previous surgical repairs. Orders: Orders C Reactive Protein Today Z00.00 - Encounter for general adult medical examination without abnormal findings Magnesium Today Z00.00 - Encounter for general adult medical examination without abnormal findings Hemoglobin A1c Today Z00.00 - Encounter for general adult medical examination without abnormal findings TSH reflex Free T4 Today Z00.00 - Encounter for general adult medical examination without abnormal findings Vitamin D 25-OH Total Today Z00.00 - Encounter for general adult medical examination without abnormal findings UA CC w/rflx Micro + Cult Today K40.90 - Unilateral inguinal hernia, without obstruction or gangrene, not specified as recurrent, R10.32 - Left lower quadrant pain, Z87.442 - Personal history of urinary calculi Complete Blood Count Auto Diff Today Z00.00 - Encounter for general adult medical examination without abnormal findings Comprehensive [place]. Panel Fast Today Z00.00 - Encounter for general adult medical examination without abnormal findings Liver Panel Today Z00.00 - Encounter for general adult medical examination without abnormal findings Lipid Panel Today Z00.00 - Encounter for general adult medical examination without abnormal findings PSA,Total (Free>4and<10) Today Z00.00 - Encounter for general adult medical examination without abnormal findings Vitamin B12 and Folate Today Z00.00 - Encounter for general adult medical examination without abnormal findings CT abdomen pelvis wo IV con Today K40.90 - Unilateral inguinal hernia, without obstruction or gangrene, not specified as recurrent, R10.32 - Left lower quadrant pain, Z87.442 - Personal history of urinary calculi Medications: New atorvastatin 20 mg PO DAILY 90 tabs 1RF losartan 100 mg PO DAILY 90 tabs 1RF Scribe Plan - Not visible on output: History of Present Illness The patient is a 54-year-old male presenting with pain to the left lower quadrant over the past few months intermittently where he had a left inguinal repair with mesh placement. This issue dates back to after a hernia repair surgery conducted by Dr. Smith, who has performed two such surgeries previously. The patient reports intermittent discomfort, describing the pain as random. It is not present consistently and seems to arise unpredictably. There is no history of associated nausea, vomiting, or changes in bowel habits such as black or bloody stools. The patient also has a history of kidney stones, a potential contributor to the abdominal discomfort, but is currently asymptomatic in that regard. The patient has essential hypertension, for which he is treated with losartan, and hyperlipidemia managed with atorvastatin. He self-reported a lapse in taking prescribed coenzyme due to its perceived side effects. There is a history of anxiety that does not currently require pharmacotherapy. Despite a tendency for slightly elevated fasting blood glucose levels, the patient denies symptoms consistent with diabetes such as polyuria or polydipsia. There is also a self-reported history of being at high risk for colorectal issues, hence, previous colonoscopies have been performed, with no mention of diverticula or new issues being found. Social History - He prefers self-managing certain medications, opting out of older prescriptions due to side effects. - The patient routinely undergoes medical follow-ups such as annual exams and colonoscopies, indicating a proactive approach to health maintenance. Review of Systems - Gastrointestinal: Reports no nausea, vomiting, or abnormal stool changes. - General: Denies new symptoms of concern. Physical Exam Appearance: Alert. Oriented X3. No acute distress. Head: Normal external exam. Normocephalic. Atraumatic. Eyes: Pupils are equal, round, and reactive to light. Extraocular movements intact. Conjunctiva and sclera normal. Eyelids normal. Ears: External auditory canal normal. Throat: Pharynx normal. Uvula midline. Moist mucous membranes. Neck: Normal inspection. Neck supple. Full range of motion. Cardiovascular: Normal heart rate and rhythm. Respiratory: No respiratory distress. Painless inspiration. Abdomen: Soft and mild tenderness to the left lower quadrant/left flank. Bowel sounds normal in all 4 quadrants. No distention noted. No organomegaly noted. No visible injury noted. No hernias are noted. Old surgical scars appear within normal limits no signs of infection, fluctuance or tenderness over surgical scars Back: No costovertebral angle tenderness. Full range of motion noted. Skin: Skin warm and dry. Normal skin color. Normal skin turgor. No rashes/lesions/lacerations noted. Extremities: Extremities exhibit normal range of motion. Extremities nontender. Neuro: Oriented X 3. No motor deficit. No sensory deficit. Reflexes normal. Results - Lab Results: Slightly elevated fasting blood glucose and high LDL cholesterol noted in the previous panel. Plan - Order a CT scan to assess the cause of the Left sided abdominal pain and evaluate for kidney stones or other abdominal concerns. - Perform routine blood work including CBC, CMP, lipid panel, liver enzymes, and TSH to monitor overall health and specific conditions. - Refill medications for blood pressure and cholesterol as requested. - Schedule a follow-up appointment in one month to discuss CT scan results and blood work. - Continue current managements for essential hypertension and hyperlipidemia, ensuring patient compliance. - Educate patient on signs to monitor for potential diverticulitis or recurrence of kidney stones. - Consider consulting with Dr. Smith, especially if CT scan reveals hernia-related complications or abnormalities with previous surgical repairs. Patient was informed and verbally consented to the use of an ambient scribe for clinic note documentation during this visit.
[2024-05-15 13:28] VITALS: BP 132/62; PULSE 71; TEMP 36.5; O2SAT 95; BMI 34.5
== END 2024-05-15 13:59 | disposition home or self-care (01) ==
LOC: HO.HMCSH 13:20
PROVIDERS: PCP Internal Medicine; Visit Provider Physician Assistant Medical
DX: R10.32 Left lower quadrant pain (principal); Z87.442 Personal history of urinary calculi; K40.90 Unilateral inguinal hernia, without obstruction or gangrene, not specified as recurrent; E78.00 Pure hypercholesterolemia, unspecified; I10 Essential (primary) hypertension; F41.9 Anxiety disorder, unspecified; E66.811 Obesity, class 1

== ENCOUNTER → 2024-05-15 13:20 | Outpatient (BNVA) | payer OTHER, SELFPAY | PROVIDERS: PCP Internal Medicine; Visit Provider Physician Assistant Medical | DX: R10.32 Left lower quadrant pain (principal); K40.90 Unilateral inguinal hernia, without obstruction or gangrene, not specified as recurrent; E78.00 Pure hypercholesterolemia, unspecified; I10 Essential (primary) hypertension; F41.9 Anxiety disorder, unspecified; E66.811 Obesity, class 1; Z87.442 Personal history of urinary calculi | CPT/HCPCS: 99202 ==

== ENCOUNTER 2024-06-12 08:07 | Outpatient (REF) | payer OTHER, SELFPAY ==
--- NOTE | ~2024-06-12 | CT_ITS ---
EXAMINATION: CT ABDOMEN AND PELVIS WITHOUT CONTRAST CLINICAL INFORMATION: Left lower quadrant abdominal pain. COMPARISON: 08/12/2021. TECHNIQUE: Multidetector volumetric imaging was performed from the superior aspect of the liver through the pubic symphysis. Sagittal and coronal reformatted images were obtained on the technologist's workstation. This CT examination was performed using dose optimization techniques as appropriate, variously including the following: *Automated exposure control *Adjustment of mA and/or kV according to patient size (this includes techniques or standardized protocols for targeted exams where dose is matched to indication/reason for exam; i.e. extremities or head) *Use of iterative reconstruction technique FINDINGS: LUNG BASES: Imaged lung bases are clear. Minimal emphysema. Small airways normal. No effusions. Heart size normal. There is a small type I hiatus hernia. LIVER, GALLBLADDER, AND BILIARY TREE: Unenhanced liver demonstrates mild diffuse fatty infiltration. No suspicious lesion. No intra or extrahepatic biliary dilatation. The gallbladder is unremarkable with no evidence of radiopaque gallstones, gallbladder wall thickening, or obvious pericholecystic inflammatory changes. PANCREAS: Unremarkable. SPLEEN: Unremarkable. ADRENAL GLANDS: Unremarkable. KIDNEYS AND URETERS: The kidneys are normal in size, shape, and attenuation. Right-sided extrarenal pelvis. No hydronephrosis, hydroureter, or calculi seen. No perinephric stranding. BLADDER: Suboptimally distended. Grossly normal. GASTROINTESTINAL TRACT: The small and large bowel are unremarkable. The appendix is unremarkable. Small type I hiatus hernia. Stomach, and duodenum image normally. No rectal abnormality. PERITONEUM/RETROPERITONEUM: No free air or ascites. ABDOMINAL WALL: Mild stranding in the proximal right inguinal canal is likely sales solutions representative of prior inguinal hernia repair. This has a similar appearance. There is a stable small fat-containing left inguinal hernia present. LYMPH NODES: None enlarged by size criteria. VASCULAR: Mild to moderate atheromatous calcification of the aorta and iliac arteries. No aneurysm. PELVIC VISCERA: Unremarkable. OSSEOUS STRUCTURES: No suspicious lytic or blastic bone lesion. There are spinal degenerative changes, stable, moderate. There are mild hip joint and SI joint degenerative changes. CT/CT abdomen pelvis wo IV con IMPRESSION: 1. Stable examination. No acute findings in the abdomen or pelvis. 2. Similar small fat-containing left inguinal hernia. Electronically signed by: Lonnie Murphy MD 06/12/2024 08:44 AM EDT RP
--- OUTSIDE RECORDS SUMMARY | 2024-06-12 08:13 | XMS_ITS | Patient Health Record ---
Author Organization [facility] Address [address] [place] [id number] Care Team Providers Care Nuclear Radiologist Name Role Phone Juliette (RETIRED) Thom ARELLANO Primary Care Provid er Unavailable Victor Hugo Gamboa Jr Unavailable [phone] 2 Allergies Allergen (clinical drug ingredient) Drug/Non Drug Allergy documented on EMR Reaction Allergy Type Onset Date Status codeine Codeine Sulfate Unknown Drug Allergy A ctive bee stings (uncoded) Unknown Allergy Active Reason For Referral No Information Medications Medication SIG (Take, Route, Frequency, Duration) Notes Start Date End Date Status MiraLax (colon prep) 17 GM/SCOOP mixed with Gatorade or Crystal Light Orally begin at 5:00 p.m. the day before the procedure for 1 day 04/16/2022 Active Immunizations Vaccine Route Administration Date Status Comme nts Influenza Unknown 04/16/2022 Refused Problems Problem Type SNOMED Code ICD Code Onset Dates Problem Status W/U Status Risk Notes Problem 979077916 Colon cancer screening (Z12.11) Active confirmed Problem 107388965 Family history of colon cancer (Z80.0) Active confirmed Problem 333672177 Change in bowel function (R19.4) Active confirmed Plan Of Treatment Future Test Test Name Order Date COLONOSCOPY 03/25/2016 COLONOSCOPY 04/16/2022 Insurance Providers Payer Name Payer Address Payer Phone Subscriber Number Group Number Insured Name Patient Relationship to Insured Coverage Start Date Coverage End Date [facility] [email or web address] [facility] [address] [address] [place], [place] [id number] IRAM DICKEY Self - patient is the insured Medical (General) History Medical History History ICD Code Colonoscopy 06/12/16, normal, five-year f ollowup for family history Nephrolithiasis Surgical History Surgery Date(Month/Year) Bilateral inguinal hernia repairs Multiple ESWL/cystoscopies for nephrolit hiasis
== END 2024-06-12 08:08 | disposition home or self-care (01) ==
LOC: HO.CT 08:07
PROVIDERS: PCP Internal Medicine; Visit Provider Physician Assistant Medical
DX: R10.32 Left lower quadrant pain (principal); K40.90 Unilateral inguinal hernia, without obstruction or gangrene, not specified as recurrent; Z87.442 Personal history of urinary calculi
CPT/HCPCS: 74176

== ENCOUNTER → 2024-06-12 08:10 | Outpatient (BNV) | payer OTHER, SELFPAY | PROVIDERS: PCP Internal Medicine; Visit Provider Radiology Diagnostic Radiology | DX: K40.90 Unilateral inguinal hernia, without obstruction or gangrene, not specified as recurrent (principal) | CPT/HCPCS: 74176 ==

== ENCOUNTER 2024-06-12 15:10 | Outpatient (REF) | payer OTHER, SELFPAY ==
[2024-06-12 16:00] LABS: Appearance Urine Clear; Color Urine Yellow; Glucose Urine UA Negative (Negative); Leukocyte Esterase Urine Negative (Negative); Nitrite Urine Negative (Negative); PH 5.5 (5.0-9.0); Urine Blood Negative (Negative); Urine Ketones Negative (Negative); Urine Protein Negative (Neg-Trace)
[2024-06-12 16:09] LABS: MANUAL DIFF FLAG NO
[2024-06-12 16:20] LABS: Basophils Absolute Auto 0.1 X10*3/uL (0.0-0.2); Eosinophils Absolute Auto 0.1 X10*3/uL (0.0-0.4); Eosinophils Percent Auto 2.4 % (0-4); Hematocrit 44.4 % (42.0-52.0); Hemoglobin 15.6 g/dl (14.0-18.0); Imm Gran Abs Auto 0.04 X10*3/uL (0.00-0.03); Imm Gran Pct Auto 0.7 % (0.0-0.4); Lymphocytes Percent Auto 34.4 % (20-40); Mean Corpuscular HGB Conc 35.1 g/dl (31.0-36.0); Mean Corpuscular Volume 91.2 fL (80.0-98.0); Mean Platelet Volume 9.7 fL (9.4-12.4); Monocytes Absolute Auto 0.5 X10*3/uL (0.1-1.2); Monocytes Percent Auto 9.4 % (2-11); Neutrophils Percent Auto 52.1 % (45-73); Platelet Count 226 X10*3/uL (160-400); Red Blood Count 4.87 X10*6/uL (4.60-5.80); Red Cell Distribution Width 13.1 % (11.0-16.0); White Blood Count 5.8 X10*3/uL (4.8-10.8)
[2024-06-12 16:35] LABS: Estimated Average Glucose 140 mg/dL; Hemoglobin A1c % 6.5 % (<6.0)
[2024-06-12 17:16] LABS: Alanine Aminotransferase 41 U/L (0-40); Albumin Level 4.4 g/dL (3.5-5.0); Alkaline Phosphatase 61 U/L (39-117); Anion Gap 13 (12-20); Aspartate Amino Transferase 26 U/L (5-37); Bilirubin Direct 0.2 mg/dL (0.0-0.5); Bilirubin Total 0.6 mg/dL (0.0-1.0); Blood Urea Nitrogen 9 mg/dL (9-16); C Reactive Protein 0.12 mg/dL (< or = 0.50); Calcium 9.1 mg/dL (8.4-10.2); Carbon Dioxide 25 mmol/L (22-29); Chloride 107 mmol/L (96-108); Cholesterol 201 mg/dL (<200); Estimated Glomerular Filt Rate > 60; Glucose Fasting 124 mg/dL (60-99); HDL Cholesterol 40 mg/dL (>40); LDL Cholesterol Calculated 133 mg/dL (<100); Magnesium 1.9 mg/dL (1.6-2.6); Potassium 4.2 mmol/L (3.3-5.1); Sodium 141 mmol/L (135-145); Total Protein 7.6 g/dL (6.5-8.0); Triglycerides 143 mg/dL (<150)
[2024-06-12 17:18] LABS: PSA,Total (Free>4and<10) 0.29 ng/mL (0.00-4.00)
[2024-06-12 17:19] LABS: TSH reflex Free T4 2.86 uIU/mL (0.32-4.0)
[2024-06-12 17:31] LABS: Folate 4.6 ng/mL (> or = 4.0); Vitamin B12 307 pg/mL (200-900)
== END 2024-06-12 15:11 | disposition home or self-care (01) ==
LOC: HO.HMGCLDS 15:10
PROVIDERS: PCP Internal Medicine; Visit Provider Physician Assistant Medical
DX: Z00.00 Encounter for general adult medical examination without abnormal findings (principal); R10.32 Left lower quadrant pain; Z87.442 Personal history of urinary calculi; K40.90 Unilateral inguinal hernia, without obstruction or gangrene, not specified as recurrent
CPT/HCPCS: 36415; 80053; 80061; 80076; 81003; 82248; 82306; 82607; 82746; 83036; 83735; 84153; 84443; 85025; 86140

== ENCOUNTER 2024-06-14 13:50 | Outpatient (AMB) | payer OTHER, SELFPAY ==
--- NOTE | 2024-06-14 13:56 | MHC.PC.OV ---
Vital Signs 06/14/24 14:00 Height 5 ft 8.5 in Weight 231 lb BMI 34.6 BP 152/70 H Blood Pressure Location Rt brachial Pulse 66 Pulse Source Pulse Oximeter Temp 97.1 F Pulse Oximetry (%) 94 Intake Visit Reasons: 1 month follow up Intake Note: looking for CT Scan results and diabetic training Allergies bee pollen [BEE STINGS] Allergy (Severe, Verified 06/14/24 14:32) THROAT SWELLING codeine [From Tylenol-Codeine] Allergy (Unknown, Verified 06/14/24 14:32) Vomiting Medication List - Last Reconciled 06/14/24 by Radha Murray PA-C alcohol swabs (Alcohol Pads) 1 pad topical TID atorvastatin 20 mg PO DAILY blood sugar diagnostic (FreeStyle Lite Strips) monitor blood glucose level 3 times a day at breakfast lunch and dinner blood-glucose meter (FreeStyle Lite Meter kit) monitor blood glucose level 3 times a day at breakfast lunch and dinner cholecalciferol (vitamin D3) 1,250 mcg PO QWEEK 3 months lancets (2-In-1 Lancet Device) monitor blood glucose level 3 times a day at breakfast lunch and dinner losartan 100 mg PO DAILY metformin 500 mg PO DAILY PFSH Medical History Degenerative joint disease of sacroiliac joint Emphysema lung Vitamin D deficiency New onset type 2 diabetes mellitus Hiatal hernia Obesity (BMI 30.0-34.9) LLQ abdominal pain History of hematuria Mild hypercholesterolemia Primary hypertension Anxiety Perianal wart History of epididymitis History of orchitis History of kidney stones Ex-smoker Increased BMI Low back pain Borderline hyperlipidemia Kidney stone Surgical History History of left inguinal hernia repair (01/28/22) H/O colonoscopy (~06/09/22) Hx of cystoscopy Hx of cystoscopy Hx of lithotripsy History of right inguinal hernia repair Family History Father Colon cancer Mother Colon cancer Social History Alcohol intake: never Patient Tobacco Use Status: Former Tobacco user Tobacco use type: Cigarette Years Smoked: 20 Substance Use Type: Marijuana Physical exam (Primary Care) Vital Signs: Last Vital Signs Temp 97.1 F 06/14/24 14:00 Pulse 66 06/14/24 14:00 BP 152/70 H 06/14/24 14:00 Pulse Ox 94 06/14/24 14:00 Care Plan Goal for BP management: <130/80 his blood pressure at last visit was within normal range. Patient is very anxious about the new onset diabetes and being talk about diabetes and his weight. He will continue checking his blood pressure and will return in 3 months for recheck. Patient to continue losartan 100 mg daily. BMI result Body Mass Index 34.6 BMI Assessment/Plan discussion: High BMI High, discussed plan: lifestyle, weight reduction, dietary, physical activity and alcohol moderation Tobacco/Smoking Status: Tobacco use Status Patient Tobacco Use Status Former Tobacco user 06/14/24 14:03 Tobacco use type Cigarette 06/14/24 14:03 Coding Level of Care Code Est Pt Level 4 (57069) Complex EM visit Add On G2211 Diagnoses Vitamin D deficiency E55.9 New onset type 2 diabetes mellitus E11.9 Hiatal hernia K44.9 Obesity (BMI 30.0-34.9) E66.811 Mild hypercholesterolemia E78.00 Primary hypertension I10 Left inguinal hernia K40.90 Emphysema lung J43.9 Degenerative joint disease of sacroiliac joint M46.1 Assessment & Plan Assessment & Plan (1) Vitamin D deficiency: Code(s): E55.9 - Vitamin D deficiency, unspecified Category: Medical Plan: Patient was started on vitamin-D supplement 1250 mcg weekly. Condition is chronic and stable continue to monitor (2) New onset type 2 diabetes mellitus: Code(s): E11.9 - Type 2 diabetes mellitus without complications Category: Medical Plan: Patient brought in his glucometer and I showed him how to check his blood glucose level. Before meals and he can check 2 hours after meals. He will be started on metformin 500 mg daily. A1c level go less than 7. A1c level on 06/12/2024 6.5. Condition is chronic and stable patient will return in 3 months will continue to monitor (3) Hiatal hernia: Code(s): K44.9 - Diaphragmatic hernia without obstruction or gangrene Category: Medical Plan: Hiatal hernia noted on CT scan. Patient was referred to gastroenterology. Condition is chronic and stable continue to monitor. (4) Obesity (BMI 30.0-34.9): Code(s): E66.811 - Obesity, class 1 Category: Medical Plan: Patient to improve his diet and exercise regimen. Condition is chronic and stable continue to monitor. (5) Mild hypercholesterolemia: Code(s): E78.00 - Pure hypercholesterolemia, unspecified Category: Medical Plan: LDL level goal less than 70. Last LDL was on 06/12/2024 which was 133. Patient was started on atorvastatin 20 mg daily. Condition is chronic and stable continue to monitor. (6) Primary hypertension: Code(s): I10 - Essential (primary) hypertension Category: Medical Plan: Go less than 130/80. Patient to continue losartan 100 mg daily. Patient will reassess his blood pressure and will monitor at next visit. Condition is chronic and stable continue current regimen. (7) Left inguinal hernia: Code(s): K40.90 - Unilateral inguinal hernia, without obstruction or gangrene, not specified as recurrent Category: Medical Plan: Condition is chronic and stable continue to monitor. (8) Emphysema lung: Code(s): J43.9 - Emphysema, unspecified Category: Medical Plan: Condition is chronic and stable will continue to monitor. (9) Degenerative joint disease of sacroiliac joint: Code(s): M46.1 - Sacroiliitis, not elsewhere classified Category: Medical Plan: Condition is chronic and stable continue to monitor. Plan Plan Patient was informed and verbally consented to the use of an ambient scribe for clinic note documentation during this visit. 1. Other specified disorders of arteries and arterioles Focused on dietary modifications, with discussion on antiplatelet options like aspirin considered based on patient?s consent and preferences. 2. Fatty Liver Managed through dietary interventions aiming to reduce liver fat deposits. Observation and follow-up imaging recommended for monitoring. 4. Hiatal Hernia Immediate treatment includes omeprazole for reflux symptoms, with potential further evaluation by GI specialists if symptoms persist or worsen. 5. Vitamin D Deficiency Maintained current supplementation regimen. Follow-up lab assessments are proposed to adjust dosage accordingly. 6. Degenerative Changes In Sacroiliac Joints Continued NSAID use with plans for physical therapy to assist with back pain relief. Weight loss strongly advocated. 7. Type 2 Diabetes Mellitus Continued treatment with metformin, with increased emphasis on monitoring glucose levels regularly. Recommendations include incorporating lifestyle changes focusing on diet and potential consideration for a continuous glucose monitor for better regulation. Discussion Notes I discussed with the patient the management and progression of his type 2 diabetes mellitus, emphasizing improved diet and exercise to achieve better glucose control. I clarified the use of metformin and suggested regular glucose monitoring to prevent hyperglycemic episodes. We reviewed the risks associated with his fatty liver and discussed dietary improvements to address this. I also addressed his emphysema, advising avoidance of further smoke exposure, and educated him on managing his hiatal hernia with prescribed omeprazole. We reviewed his chronic atherosclerotic disease and entertained preventative strategies such as diet alterations and potential pharmacological prophylaxis. Finally, I informed him of the importance of monitoring his degenerative joint disease and encouraged weight management to alleviate joint stress and pain. A follow-up was scheduled for three months to reassess these conditions. Medications: New blood sugar diagnostic (FreeStyle Lite Strips) monitor blood glucose level 3 times a day at breakfast lunch and dinner 100 ea 1RF lancets (2-In-1 Lancet Device) monitor blood glucose level 3 times a day at breakfast lunch and dinner 100 ea 1RF blood-glucose meter (FreeStyle Lite Meter kit) monitor blood glucose level 3 times a day at breakfast lunch and dinner 1 ea 0RF E11.9 - Type 2 diabetes mellitus without complications Discontinued blood-glucose meter Discontinued Reason: Duplicate As directed 1 ea 0RF Patient Instructions: Patient Instructions - Continue taking metformin as prescribed and monitor blood glucose levels as instructed. - Follow a balanced diet to aid in controlling blood sugar and improve liver health. - Take vitamin D supplements as directed. - Use omeprazole if advised for acid reflux; continue with antacids as needed. - Refrain from smoking or exposure to smoke. - Maintain weight loss plans to alleviate pressure on joints and improve overall health. - Monitor symptoms related to your inguinal hernia and contact a healthcare provider if you experience increased pain. - Consider aspirins as discussed once you are comfortable with its inclusion in your regimen. - Schedule a follow-up appointment in three months. - Contact the office if experiencing any new or worsening symptoms. Scribe Plan - Not visible on output: History of Present Illness The patient is a 54-year-old male presenting with diabetes management and education. The patient has type 2 diabetes mellitus, originally diagnosed with a hemoglobin A1c of 6.5%. Current management includes metformin, supplemented by advice on dietary improvements to better control blood sugar levels. A glucose monitoring device was demonstrated for blood sugar tracking, with guidelines to measure levels before meals and potentially after meals if needed. The patient's medical history also includes mild emphysema, attributed to past smoking, and vitamin D deficiency, for which treatment has already been initiated. He also suffers from a hiatal hernia, contributing to acid reflux, usually mitigated with antacids. Imaging displayed a fatty liver without lesions and small stable right and left inguinal hernias, with previous repair done on the right side. Social history indicates his recreational activities such as playing guitar, which the patient wishes to continue without unnecessary interruption from health management. His lower back pain, particularly in the sacroiliac joints, is presently managed by ibuprofen, while the prognosis for chronic atherosclerotic disease has been assessed, with suggestions made to combat this with diet improvements. Social History - Employment: Works in [employer]. - Substance Use: Past history of smoking, currently uses cannabis. 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 - Weight management: Overweight and trying to lose weight. - Diet: Recent poor dietary choices including excessive consumption of sweets. - Family: Has a father with a history of diabetes. Review of Systems - Respiratory: Reports mild lung disease due to past smoking. - Gastrointestinal: Reports acid reflux symptoms and history of hiatal hernia. - Musculoskeletal: Reports lower back pain related to degenerative changes. - Neurological: Reports no dizziness during elevated blood glucose episodes so far. Physical Exam Appearance: Alert. Oriented X3. No acute distress. Head: Normal external exam. Normocephalic. Atraumatic. Eyes: Pupils are equal, round, and reactive to light. Extraocular movements intact. Conjunctiva and sclera normal. Eyelids normal. Ears: External auditory canal normal. Tympanic membranes normal. Throat: Pharynx normal. Uvula midline. Moist mucous membranes. Neck: Normal inspection. Neck supple. Full range of motion. No adenopathy. Thyroid Normal. No meningeal signs. No neck mass noted. Cardiovascular: Normal heart rate and rhythm. Heart sound normal. No murmurs noted. Pulses normal throughout. Respiratory: No respiratory distress. Painless inspiration. Breath sounds normal. No wheezes/rales/rhonchi noted. Chest nontender. No accessory muscle usage noted or decreased air movement noted. Abdomen: Soft and nontender. Bowel sounds normal in all 4 quadrants. No distention noted. No organomegaly noted. No visible injury noted. Back: No costovertebral angle tenderness. Full range of motion noted. Skin: Skin warm and dry. Normal skin color. Normal skin turgor. No rashes/lesions/lacerations noted. Extremities: No lower extremity edema. Extremities exhibit normal range of motion. Extremities nontender. Neuro: Oriented X 3. No motor deficit. No sensory deficit. Reflexes normal. Results - Imaging: - Emphysema noted on imaging. - Hiatal hernia noted. - Fatty liver identified without suspicious lesions. - Mild degenerative changes in the sacroiliac joints. - Right inguinal hernia repair visible, stable small hernia noted on the left side. - Labs: Elevated hemoglobin A1c at 6.5%.
[2024-06-14 14:00] VITALS: BP 152/70; PULSE 66; TEMP 36.2; O2SAT 94; BMI 34.6
--- OUTSIDE RECORDS SUMMARY | 2024-06-14 16:20 | XMS_ITS | Patient Health Record ---
Author Organization [facility] Address [address] [place] [id number] Care Team Providers Care Blacktop Spreader Name Role Phone Juliette (RETIRED) Thom ARELLANO Primary Care Provid er Unavailable Victor Hugo Gamboa Jr Unavailable Allergies Allergen (clinical drug ingredient) Drug/Non Drug [...] Problem Status W/U Status Risk Notes Problem 041301449 Colon cancer screening (Z12.11) Active confirmed Problem 608233105 Family history of colon cancer (Z80.0) Active confirmed Problem [id number] Change in bowel function (R19.4) Active confirmed Plan Of Treatment Future Test Test Name Order Date COLONOSCOPY 03/25/2016 COLONOSCOPY 04/16/2022 Insurance Providers Payer Name Payer Address Payer Phone Subscriber Number Group Number Insured Name Patient Relationship to Insured Coverage Start Date Coverage End Date [facility] [employer] [facility] [address] [address] [place], [place] [id number] IRAM DICKEY Self - patient is the insured Medical (General) History Medical History History ICD Code Colonoscopy 06/12/16, normal, five-year f ollowup for family history Nephrolithiasis Surgical History Surgery Date(Month/Year) Bilateral inguinal hernia repairs Multiple ESWL/cystoscopies for nephrolit hiasis
== END 2024-06-14 14:32 | disposition home or self-care (01) ==
LOC: HO.HMCSH 13:50
PROVIDERS: PCP Internal Medicine; Visit Provider Physician Assistant Medical
DX: E55.9 Vitamin D deficiency, unspecified (principal); E11.9 Type 2 diabetes mellitus without complications; K44.9 Diaphragmatic hernia without obstruction or gangrene; E66.811 Obesity, class 1; E78.00 Pure hypercholesterolemia, unspecified; I10 Essential (primary) hypertension; K40.90 Unilateral inguinal hernia, without obstruction or gangrene, not specified as recurrent; J43.9 Emphysema, unspecified; M46.1 Sacroiliitis, not elsewhere classified

== ENCOUNTER → 2024-06-14 13:50 | Outpatient (BNVA) | payer OTHER, SELFPAY | PROVIDERS: PCP Internal Medicine; Visit Provider Physician Assistant Medical | DX: E11.9 Type 2 diabetes mellitus without complications (principal); E55.9 Vitamin D deficiency, unspecified; K44.9 Diaphragmatic hernia without obstruction or gangrene; E78.00 Pure hypercholesterolemia, unspecified; I10 Essential (primary) hypertension; K40.90 Unilateral inguinal hernia, without obstruction or gangrene, not specified as recurrent; J43.9 Emphysema, unspecified; M46.1 Sacroiliitis, not elsewhere classified; E66.811 Obesity, class 1; Z68.35 Body mass index [BMI] 35.0-35.9, adult; Z71.3 Dietary counseling and surveillance | CPT/HCPCS: 99212 ==

== ENCOUNTER 2024-09-20 13:11 | Outpatient (AMB) | payer OTHER, SELFPAY ==
--- NOTE | 2024-09-20 13:22 | MHC.PC.OV ---
Vital Signs 09/20/24 13:23 Height 5 ft 8.5 in Weight 221 lb BMI 33.1 BP 131/78 Blood Pressure Location Rt radial Position Sitting Respiration 16 Pulse 62 Pulse Source Pulse Oximeter Temp 98.1 F Temp Source Temporal Artery Scan Pulse Oximetry (%) 96 Oxygen Delivery Method Room Air Intake Visit Reasons: 3 month f/u Medical Affairs Specialist Required: No Accompanied by: Self / Same As Patient Allergies bee pollen (BEE STINGS) Allergy (Severe, Verified 09/20/24 15:58) THROAT SWELLING codeine (From Tylenol-Codeine) Allergy (Unknown, Verified 09/20/24 15:58) Vomiting Medication List - Last Reconciled 09/20/24 by Radha Murray PA-C alcohol swabs (Alcohol Pads) 1 pad topical TID atorvastatin 20 mg PO DAILY blood sugar diagnostic (FreeStyle Lite Strips) monitor blood glucose level 3 times a day at breakfast lunch and dinner blood-glucose meter (FreeStyle Lite Meter kit) monitor blood glucose level 3 times a day at breakfast lunch and dinner cholecalciferol (vitamin D3) 1,250 mcg PO QWEEK lancets (2-In-1 Lancet Device) monitor blood glucose level 3 times a day at breakfast lunch and dinner losartan 100 mg PO DAILY Tobacco use date assessed: 09/20/24 Dental Screening Dental Screen Date: 09/20/24 Did you have a dental visit in the last 12 months?: No Did you have a dental problem in the last 6 months where you did not have access to dental care?: No Was dental information given to patient?: Patient has dentist (pt has dentures) HPI 3 month f/u HPI Details The patient is a 54-year-old male presenting with a follow-up for diabetes management. The patient's hemoglobin A1c has improved from 6.5% to 6.0% over the past three months, indicating a transition from diabetes to prediabetes. This improvement is attributed to dietary changes, specifically reducing soda intake, which previously contributed to 83% of his sugar consumption. The patient reports a weight loss of 10 pounds, decreasing from 231 pounds to 221 pounds over the past three months. He attributes this weight loss to dietary modifications and increased awareness of his health status. The patient has a history of an inguinal hernia, which has not been surgically repaired. He reports occasional soreness, particularly after lifting heavy objects, but the hernia has not protruded significantly. The patient also has a history of hypertension, currently managed with losartan 100 mg. His blood pressure was recorded at 131/78 mmHg during the visit, though the cuff used was noted to be slightly small for his arm. He is advised to monitor his blood pressure at home and report any consistent readings above 140/90 mmHg. Social History - Nutritional intake: Significant reduction in soda consumption, previously accounting for 83% of sugar intake. - Weight management: Reports a weight loss of 10 pounds over three months due to dietary changes. [facility] Medical History (Updated 09/20/24 @ 16:11 by Radha Murray PA-C) Inguinal hernia Type 2 diabetes mellitus with hemoglobin A1c goal of less than 7.0% Degenerative joint disease of sacroiliac joint Emphysema lung Vitamin D deficiency New onset type 2 diabetes mellitus Hiatal hernia Obesity (BMI 30.0-34.9) LLQ abdominal pain History of hematuria Mild hypercholesterolemia Primary hypertension Anxiety Perianal wart History of epididymitis History of orchitis History of kidney stones Ex-smoker Increased BMI Low back pain Borderline hyperlipidemia Kidney stone Surgical History History of left inguinal hernia repair (01/28/22) H/O colonoscopy (~06/09/22) Hx of cystoscopy Hx of cystoscopy Hx of lithotripsy History of right inguinal hernia repair Family History Father Colon cancer Mother Colon cancer Social History Housing: House Alcohol intake: current Alcohol intake frequency: does not drink Patient Tobacco Use Status: Former Tobacco user Tobacco use type: Cigarette Years Smoked: 20 Substance Use Type: Marijuana service: No Current occupational status: employed Cognitive needs: No Hearing needs: No Vision needs: No Questionnaire PHQ-9 Over the last 2 weeks, how often have you been bothered by any of the following problems? 1. Little interest or pleasure in doing things: not at all 2. Feeling down, depressed, or hopeless: not at all 3. Trouble falling or staying asleep, or sleeping too much: not at all 4. Feeling tired or having little energy: not at all 5. Poor appetite or overeating: not at all 6. Feeling bad about yourself - or that you are a failure or have let yourself or your family down: not at all 7. Trouble concentrating on things, such as reading the newspaper or watching television: not at all 8. Moving or speaking so slowly that other people could have noticed. Or the opposite - being so fidgety or restless that you have been moving around a lot more than usual: not at all 9. Thoughts that you would be better off or of hurting yourself in some way: not at all Total score: 0 Depression Screening Interpretation: Negative Depression Screening Done: Yes 96094 - PHQ-9 Billing: Yes Source: Developed by Drs. Thom Chaparro, Priti Fam, Tray Romero and colleagues, with an educational pasquale from [employer] Thrive Questionnaire Date Thrive assessed: 09/20/24 I am a: Patient What is your living situation today?: I have a steady place to live Within the past 12 months, did the food you bought not last and you didn't have the money to get more?: Never true Within the past 12 months, did you worry whether your food would run out before you got money to buy more?: Never true Do you have trouble paying for medicines?: No Do you have trouble getting transportation to medical appointments?: No Do you have trouble paying your heating and electricity bill?: No Do you have trouble taking care of your child, family member or friend?: No Do you have trouble with day-to-day activities such as bathing, preparing meals, shopping, managing finances, etc.?: No Are you currently unemployed and looking for a job?: No Are you interested in more education?: No Please select the resources that you would like help with: None THRIVE Score: 0 AUDIT C Alcohol Use Questionnaire (AUDIT-C) 1. How often do you have a drink containing alcohol?: Never 3. How often do you have six or more drinks on one occasion?: Never Total Score: 0 Score Reviewed/Action Taken: Yes SUZETTE-7 AMB Questionnaire SUZETTE-7 Date SUZETTE - 7 assessed: 09/20/24 Feeling nervous, anxious, or on edge: 0 = Not at all Not being able to stop or control worryin = Not at all Worrying too much about different things: 0 = Not at all Trouble relaxin = Not at all Being so restless that it is hard to sit still: 0 = Not at all Becoming easily annoyed or irritable: 0 = Not at all Feeling afraid as if something awful might happen: 0 = Not at all Total SUZETTE-7 score (0-4 normal; 5-9 mild; 10-14 moderate; 15-21 severe): 0 Source: Developed by Drs. Thom Chaparro, Priti Fam, Tray Romero and colleagues, with an educational pasquale from [employer] SUZETTE-7 Assessment Billing SUZETTE-7 Assessment Tool: SUZETTE-7 Assessment 69358 Review of Systems Const Details: - Endocrine: Reports improved glycemic control with A1c reduction from 6.5% to 6.0%. - Musculoskeletal: Reports occasional soreness in the inguinal region after lifting heavy objects. - Cardiovascular: Denies chest pain or palpitations. Physical exam (Primary Care) Vital Signs: Last Vital Signs Temp 98.1 F 09/20/24 13:23 Pulse 62 09/20/24 13:23 Resp 16 09/20/24 13:23 BP 152/96 H 09/20/24 13:23 Pulse Ox 96 09/20/24 13:23 Oxygen Delivery Method Room Air 09/20/24 13:23 Care Plan Goal for BP management: <140/90 at Goal BMI result Body Mass Index 33.1 BMI Assessment/Plan discussion: High BMI High, discussed plan: lifestyle, weight reduction, dietary, physical activity and alcohol moderation Tobacco/Smoking Status: Tobacco use Status Tobacco use date assessed 09/20/24 09/20/24 13:31 Patient Tobacco Use Status Former Tobacco user 09/20/24 13:31 Tobacco use type Cigarette 09/20/24 13:31 PHQ-9: PHQ-9 Score PHQ-9: Total score 0 09/20/24 14:10 Depression Screening Interpretation: Negative Thrive Assessment: Date of Thrive Assessment Date Thrive assessed 09/20/24 09/20/24 13:31 Const Other: Appearance: Alert. Oriented X3. No acute distress. Patient appears thinner, having lost approximately 10 pounds. Head: Normal external exam. Normocephalic. Atraumatic. Eyes: Pupils are equal, round, and reactive to light. Extraocular movements intact. Conjunctiva and sclera normal. Eyelids normal. Ears: External auditory canal normal. Tympanic membranes normal. Throat: Pharynx normal. Uvula midline. Moist mucous membranes. Neck: Normal inspection. Neck supple. Full range of motion. No adenopathy. Thyroid Normal. No meningeal signs. No neck mass noted. Cardiovascular: Normal heart rate and rhythm. Heart sound normal. No murmurs noted. Pulses normal throughout. Blood pressure recorded at 131/78, but patient advised to monitor at home due to potential inaccuracies with cuff size. Respiratory: No respiratory distress. Painless inspiration. Breath sounds normal. No wheezes/rales/rhonchi noted. Chest nontender. No accessory muscle usage noted or decreased air movement noted. Abdomen: Soft and nontender. Bowel sounds normal in all 4 quadrants. No distention noted. No organomegaly noted. No visible injury noted. Patient reports a small inguinal hernia, not currently symptomatic. Back: No costovertebral angle tenderness. Full range of motion noted. Skin: Skin warm and dry. Normal skin color. Normal skin turgor. No rashes/lesions/lacerations noted. Extremities: No lower extremity edema. Extremities exhibit normal range of motion. Extremities nontender. Neuro: Oriented X 3. No motor deficit. No sensory deficit. Reflexes normal. Results AMB Hemoglobin A1c AMB Hemoglobin A1c 6.0 % Last Edit by CARMEN Morales on 09/20/24 14:11 Results Reviewed Results Reviewed: Laboratory Last Values Hgb A1c (Clinic) 6.0 % (4.0-6.0) 09/20/24 13:36 - Labs: Hemoglobin A1c reduced from 6.5% to 6.0%. Coding Level of Care Code Est Pt Level 4 (52855) Complex EM visit Add On G2211 Diagnoses Type 2 diabetes mellitus with hemoglobin A1c goal of less than 7.0% E11.9 Inguinal hernia K40.90 Primary hypertension I10 Additional Codes PHQ-9 - 62286 - PHQ-9 Billing: Yes ([id number]) SUZETTE-7 Assessment Billing - SUZETTE-7 Assessment Tool: SUZETTE-7 Assessment 98996 ([id number]) Assessment & Plan Assessment & Plan (1) Type 2 diabetes mellitus with hemoglobin A1c goal of less than 7.0%: Code(s): E11.9 - Type 2 diabetes mellitus without complications Category: Medical Plan: The patient's hemoglobin A1c has improved from 6.5% to 6.0%, transitioning from diabetes to prediabetes. Continued dietary management is advised, focusing on reducing sugar intake, particularly from sodas. Follow-up is recommended in six months to reassess glycemic control. (2) Inguinal hernia: Code(s): K40.90 - Unilateral inguinal hernia, without obstruction or gangrene, not specified as recurrent Category: Medical Plan: The patient reports occasional soreness in the inguinal region, particularly after lifting heavy objects. Surgical consultation is not immediately necessary unless symptoms worsen. The patient is advised to monitor symptoms and seek referral if the hernia becomes more symptomatic. Condition is chronic and stable will continue to monitor. (3) Primary hypertension: Code(s): I10 - Essential (primary) hypertension Category: Medical Plan: The patient's blood pressure was recorded at 131/78 mmHg. He is currently on losartan 100 mg. Home monitoring of blood pressure is advised, with instructions to report any consistent readings above 140/90 mmHg. A follow-up is suggested in six months unless blood pressure readings indicate the need for earlier intervention. Condition is chronic and stable continue to monitor. Plan Plan Patient was informed and verbally consented to the use of an ambient scribe for clinic note documentation during this visit. 1. Diabetes The patient's hemoglobin A1c has improved from 6.5% to 6.0%, transitioning from diabetes to prediabetes. Continued dietary management is advised, focusing on reducing sugar intake, particularly from sodas. Follow-up is recommended in six months to reassess glycemic control. 2. Inguinal Hernia The patient reports occasional soreness in the inguinal region, particularly after lifting heavy objects. Surgical consultation is not immediately necessary unless symptoms worsen. The patient is advised to monitor symptoms and seek referral if the hernia becomes more symptomatic. 3. Hypertension The patient's blood pressure was recorded at 131/78 mmHg. He is currently on losartan 100 mg. Home monitoring of blood pressure is advised, with instructions to report any consistent readings above 140/90 mmHg. A follow-up is suggested in six months unless blood pressure readings indicate the need for earlier intervention. I discussed with the patient the improvement in his hemoglobin A1c from 6.5% to 6.0%, indicating a transition to prediabetes. We emphasized the importance of continuing dietary modifications, particularly reducing soda intake. We also reviewed his blood pressure management, advising home monitoring and reporting of any elevated readings. The patient was informed about the potential need for surgical consultation if his inguinal hernia symptoms worsen. Follow-up was scheduled for six months, with instructions to contact us sooner if necessary. Orders: Orders AMB Hemoglobin A1c Today E11.9 - Type 2 diabetes mellitus without complications Patient Instructions: - Continue dietary modifications to maintain or further reduce hemoglobin A1c levels. - Monitor blood pressure at home and report any consistent readings above 140/90 mmHg. - Observe for any changes in hernia symptoms and seek medical advice if symptoms worsen. - Schedule a follow-up appointment in six months or sooner if necessary.
[2024-09-20 13:23] VITALS: BP 131/78; PULSE 62; RESP 16; TEMP 36.7; O2SAT 96; BMI 33.1
== END 2024-09-20 13:55 | disposition home or self-care (01) ==
LOC: HO.HMCSH 13:11
PROVIDERS: PCP Internal Medicine; Visit Provider Physician Assistant Medical
DX: E11.9 Type 2 diabetes mellitus without complications (principal); K40.90 Unilateral inguinal hernia, without obstruction or gangrene, not specified as recurrent; I10 Essential (primary) hypertension

== ENCOUNTER → 2024-09-20 13:11 | Outpatient (BNVA) | payer OTHER, SELFPAY | PROVIDERS: PCP Internal Medicine; Visit Provider Physician Assistant Medical | DX: R73.03 Prediabetes (principal); K40.90 Unilateral inguinal hernia, without obstruction or gangrene, not specified as recurrent; I10 Essential (primary) hypertension | CPT/HCPCS: 83036; 96127; 99212 ==